=== PATIENT | female | born 1995 | race African-American/Black ===

== ENCOUNTER 2022-08-27 21:37 | Emergency (ER) | payer MEDICAID, OTHER ==
[~2022-08-27] VITALS: Ht 165.1 cm; Wt 59.0 kg
--- NOTE | 2022-08-27 22:28 | NUR ---
After being triaged, patient was placed back in the waiting room due to no beds available in the ER at this time.
--- NOTE | 2022-08-27 23:27 | NUR ---
Placed in room 3 at this time.
[2022-08-28] MEDS ORDERED: ACET1TAB23 PO (00:04)
--- NOTE | 2022-08-28 00:09 | NUR ---
Patient discharged to home in stable condition. Written and verbal after care instructions given. Patient verbalizes understanding of instructions. Stressed follow up or return to ER for worsening s/s. Patient is a/ox4, NAD noted, patient ambulated with steady gait
[2022-08-28 00:14] VITALS: BP 114/61
== END 2022-08-28 00:14 | disposition home or self-care (01) ==
LOC: ER 21:37
DX: S16.1XXA Strain of muscle, fascia and tendon at neck level, initial encounter (principal); Z79.899 Other long term (current) drug therapy; V43.52XA Car driver injured in collision with other type car in traffic accident, initial encounter; Y93.89 Activity, other specified; Y92.410 Unspecified street and highway as the place of occurrence of the external cause; Y99.8 Other external cause status
CPT/HCPCS: A4663

== ENCOUNTER 2023-07-07 21:27 | Emergency (ER) | payer OTHER ==
[~2023-07-07] VITALS: Ht 165.1 cm; Wt 60.3 kg
[~2023-07-07 21:27] MED LIST: ACET1TAB23 PO
[2023-07-07 21:37] VITALS: O2SAT 98
[2023-07-08] MEDS ORDERED: ONDA4TAB11 PO (00:29)
[2023-07-08] MEDS ORDERED: HYDR-3980 PO (00:29)
[2023-07-08] MEDS ORDERED: HYDROCODONE/APAP 10-325 MG TABLET ONE (00:30)
[2023-07-08] MEDS ORDERED: ONDANSETRON HCL 4 MG TABLET ONE (00:30)
[2023-07-08] MEDS: ONDANSETRON ODT 4 MG TAB.RAPDIS SL ONE (00:33)
[2023-07-08] MEDS: HYDROCODONE/APAP 10-325 MG TABLET PO ONE (00:34)
== END 2023-07-08 00:40 | disposition left against medical advice (07) ==
LOC: ER 21:29
DX: S06.0X0A Concussion without loss of consciousness, initial encounter (principal); Z79.899 Other long term (current) drug therapy; W01.0XXA Fall on same level from slipping, tripping and stumbling without subsequent striking against object, initial encounter; Y93.89 Activity, other specified; Y92.89 Other specified places as the place of occurrence of the external cause; Y99.8 Other external cause status
CPT/HCPCS: 70450; A4606; A4663; Q0162